=== PATIENT | male | born 1945 | race Caucasian/White ===

== ENCOUNTER 2023-06-09 07:00 | Day surgery (SDC) | payer MEDICARE, OTHER, SELFPAY ==
[2023-06-02 14:00] VITALS: BMI 29.8
--- NOTE | 2023-06-06 07:53 | MHC.SHP ---
Pre-Procedural Eval Section A Date of Service: 06/06/23 The patient is an INPATIENT: No Changes since office visit: No Cold of Flu in the past 2 weeks, No New Medical Problems, No Changes in Medication and No Patient answered all questions The History & Physical has been completed within 30 days and I have reviewed it.: Yes Section B Chief Complaint: Age-related nuclear cataract, right eye Allergies: Allergies Allergy/AdvReac Type Severity Reaction Status Date / Time Iodinated Contrast Media Allergy Severe Anaphylaxis Verified 06/02/23 13:50 [IV Contrast Dye] hydrocodone Allergy Intermediate Nausea and Verified 06/02/23 13:41 Vomiting halibut oil Allergy Severe Anaphylaxis Uncoded 06/02/23 13:41 Plan Diagnosis/Plan: Unchanged I have reviewed the history and physical and performed a pertinent physical examination on my patient. No changes have occurred unless specified. Time Spent With Patient Time: Total time managing care of this patient today ____ minutes.
[2023-06-09 07:54] VITALS: BP 160/98; PULSE 67; RESP 18; TEMP 36.3; O2SAT 97
[2023-06-09] MEDS: Tropicamide 1 % Ophth Sol 3 ML BTL 1 DROP EYE-RIGHT ×3 (07:57→07:58)
[2023-06-09] MEDS: Tetracaine HCl/PF 0.5% Oph Sol 4 ML DROPS 1 DROP EYE-RIGHT (07:57)
[2023-06-09] MEDS: Ketorolac Tromethamine 0.5% Op 5 ML DROPS 1 DROP EYE-RIGHT ×3 (07:57→07:58)
[2023-06-09] MEDS: Phenylephrine HCL 2.5% Oph SoL 2 ML BOTTLE 1 DROP EYE-RIGHT ×3 (07:57→07:59)
[2023-06-09] MEDS: Cyclopentolate 1 % Ophth Sol 2 ML DRPBTL 1 DROP EYE-RIGHT ×3 (07:57→07:58)
[2023-06-09] MEDS: Lactated Ringers 500 ML 50 ML IVCONT (07:57)
--- NOTE | 2023-06-09 08:22 | HO.ANESPROP2 ---
[facility] Past Medical History Medical History Basal cell carcinoma of skin Bleeding ulcer SVT (supraventricular tachycardia) Sleep apnea Nephrolithiasis HTN (hypertension) IBS (irritable bowel syndrome) Diverticulosis Depression Compression fracture of lumbar vertebra Gastroenteritis Surgical History Surgical History History of partial gastrectomy Hx of splenectomy History of lumbar spinal fusion H/O colonoscopy Hx of lithotripsy History of Problems with Anesthesia: No Social History Social History Are you a primary hospice patient care secretary to a significant other at home: No Do you presently have visiting nurse or other home services: No Patient Tobacco Use Status: Never used Tobacco Use of substances other than those prescribed or required for medical reasons: No Have you been hit, kicked, punched, or otherwise hurt by someone within the past year? If so, by whom?: No Are you DNR?: No Advance Directives Information Provided: Yes (as above noted) Advance Directives on File: No Recently lost weight without trying: No Eating poorly because of decreased appetite: No Nutrition Risks: Surgical patient >75years Poor oral hygiene: No Meds Allergies Allergy/AdvReac Type Severity Reaction Status Date / Time Iodinated Contrast Media Allergy Severe Anaphylaxis Verified 06/02/23 13:50 [IV Contrast Dye] hydrocodone Allergy Intermediate Nausea and Verified 06/02/23 13:41 Vomiting halibut oil Allergy Severe Anaphylaxis Uncoded 06/02/23 13:41 Active Medications: Current Medications Lactated Ringer's (Lr) 500 mls @ 50 mls/hr IVCONT .Q10H SAURAV Last Admin: 06/09/23 07:57 Dose: 50 mls/hr Povidone Iodine (Povidone Iodine 5 % Ophth Soln 30 Ml Bottle) 1 appl EYE-RIGHT PREOP PRN PRN Reason: Pre-Op Surgical Implant Prophy Home Medications Medication Instructions Recorded Confirmed Last Taken Type allopurinol 100 mg tablet 200 mg PO DAILY 06/02/23 06/02/23 Unknown History bupropion HCl 100 mg tablet,12 hr 100 mg PO DAILY 06/02/23 06/02/23 Unknown History sustained-release cholecalciferol (vitamin D3) 50 100 mcg PO DAILY 06/02/23 06/02/23 Unknown History mcg (2,000 unit) tablet (Vitamin D3) lactobacillus comb no.10 20 20,000 mmu cells PO DAILY 06/02/23 06/02/23 Unknown History billion cell capsule (Probiotic) metoprolol succinate 50 mg 50 mg PO DAILY 06/02/23 06/02/23 06/09/23 History tablet,extended release 24 hr potassium citrate 10 mEq (1,080 10 meq PO QID 06/02/23 06/02/23 Unknown History mg) tablet,extended release Exam Exam Date and Time: June 09, 202322 Height,Weight and Vital Signs: Height 5 ft 7 in Weight 86.183 kg Last Vital Signs Temp 97.4 F 06/09/23 07:54 Pulse 67 06/09/23 07:54 Resp 18 06/09/23 07:54 BP 160/98 H 06/09/23 07:54 Pulse Ox 97 06/09/23 07:54 O2 Del Method Room Air 06/09/23 07:54 Airway Mallampati Class: III TM Dist: >3cm Neck ROM: Full Loose/Missing/Broken Teeth: No Heart: RRR Lungs: CTA Assessment and Plan Assessment Anesthesia Assessment: Anesthesia Plan Discussed and Chart Reviewed Final Anesthetic Review History of Problems with Anesthesia: No NPO: Yes ASA Class: II Final Preanesthetic Review: Meds/Allgs Chart Reviewed, Consent Obtained/Reviewed and Anes Risks/Benef Reviewed Patient Risk: Low Procedure Risk: Low Anesthetic Plan Anesthetic Plan: MAC: Disposition: Standard PACU
--- NOTE | 2023-06-09 09:07 | HO.PNOPHT ---
Ophthalmology Procedure Procedure Date of Service: 06/09/23 Ophthalmology Viscoelastic: Healon Duet Dual Pack Pro Ophthalmology Lenses: TECNIS [id number] (21.5) Procedure Notes: PREOPERATIVE DIAGNOSIS: Decreased visual acuity right eye secondary to cataract POSTOPERATIVE DIAGNOSIS: Same PROCEDURE: Right cataract extraction with intraocular lens insertion SURGEON: Cliff Kim M.D. ANESTHESIA: Topical/MAC ESTIMATED BLOOD LOSS: None COMPLICATIONS: None After obtaining informed consent, the patient was brought to the operating room suite and placed in the supine position. After adequate sedation per anesthesia, topical drops of Tetracaine were given to the right eye. The eye was then prepped and draped in the usual sterile fashion. The operating room microscope was then positioned over the operative eye and a lid speculum placed. A paracentesis was created. Viscoelastic was then instilled into the anterior chamber. A three plane incision was then created temporally, utilizing a 2.85 mm keratome. Capsulotomy forceps were then utilized to create a circular tear capsulotomy. Hydrodissection and hydrodelineation were carried out until adequate mobilization of the nucleus occurred. Phacoemulsification was then utilized to remove the dense central nucleus followed by removal of the cortical material utilizing the automated aspiration irrigation unit. Viscoelastic was instilled into the posterior capsular bag followed by placement of a posterior chamber intraocular lens without difficulty. The residual Viscoelastic was then removed utilizing the automated IA machine. The wound was checked and found to be watertight. The patient tolerated the procedure well and the lid speculum was removed. Intracameral injection of Vigamox 0.1 mL followed by a subtenon injection of Kenalog-40 0.2 mL were administered. The patient will be seen in the a.m.
[2023-06-09 09:30] VITALS: BP 117/79; PULSE 66; RESP 20; TEMP 36.6; O2SAT 94
== END 2023-06-09 09:40 | disposition home or self-care (01) ==
PROVIDERS: PCP Internal Medicine; Visit Provider Ophthalmology
PROC: (CPT 66985; principal; 2023-06-09 09:20)
DX: H25.11 Age-related nuclear cataract, right eye (principal); H52.4 Presbyopia; H18.413 Arcus senilis, bilateral; H11.153 Pinguecula, bilateral; H43.393 Other vitreous opacities, bilateral; I10 Essential (primary) hypertension; Z90.3 Acquired absence of stomach [part of]; Z87.19 Personal history of other diseases of the digestive system; Z87.442 Personal history of urinary calculi; Z85.828 Personal history of other malignant neoplasm of skin; Z79.899 Other long term (current) drug therapy; Z91.041 Radiographic dye allergy status
CPT/HCPCS: 66984; J2250; J3010; J3301; V2632

== ENCOUNTER 2023-06-23 06:14 | Day surgery (SDC) | payer MEDICARE, OTHER, SELFPAY ==
[2023-06-02 14:02] VITALS: BMI 29.8
--- NOTE | 2023-06-17 14:13 | HO.ANESPROP2 ---
Documented by User: Gaye Rosa NP 06/17/23 14:13 HPI - Anesthesia Eval Consult details Narrative: 77yo M for Left Cataract Extraction IOL Insertion Medically optimized Right eye 06/09/2023: Fent 50, Midaz 2 PMFSH Past Medical History Medical History Basal cell carcinoma of skin Bleeding ulcer SVT (supraventricular tachycardia) Sleep apnea Nephrolithiasis HTN (hypertension) IBS (irritable bowel syndrome) Diverticulosis Depression Compression fracture of lumbar vertebra Gastroenteritis Surgical History Surgical History History of partial gastrectomy Hx of splenectomy History of lumbar spinal fusion H/O colonoscopy Hx of lithotripsy History of Problems with Anesthesia: No Social History Are you a primary respiratory care practitioner to a significant other at home: No Do you presently have visiting nurse or other home services: No Patient Tobacco Use Status: Never used Tobacco Use of substances other than those prescribed or required for medical reasons: No Have you been hit, kicked, punched, or otherwise hurt by someone within the past year? If so, by whom?: No Are you DNR?: No Advance Directives Information Provided: Yes (as above noted) Advance Directives on File: No Recently lost weight without trying: No Eating poorly because of decreased appetite: No Nutrition Risks: Surgical patient >75years Poor oral hygiene: No Meds Allergies Allergy/AdvReac Type Severity Reaction Status Date / Time Iodinated Contrast Media Allergy Severe Anaphylaxis Verified 06/23/23 07:05 [IV Contrast Dye] hydrocodone Allergy Intermediate Nausea and Verified 06/23/23 07:05 Vomiting halibut oil Allergy Severe Anaphylaxis Uncoded 06/23/23 07:05 Home Medications Medication Instructions Recorded Confirmed Last Taken Type allopurinol 100 mg tablet 200 mg PO DAILY 06/02/23 06/23/23 06/23/23 History bupropion HCl 100 mg tablet,12 hr 100 mg PO DAILY 06/02/23 06/02/23 Unknown History sustained-release cholecalciferol (vitamin D3) 50 100 mcg PO DAILY 06/02/23 06/02/23 Unknown History mcg (2,000 unit) tablet (Vitamin D3) lactobacillus comb no.10 20 20,000 mmu cells PO DAILY 06/02/23 06/02/23 Unknown History billion cell capsule (Probiotic) metoprolol succinate 50 mg 50 mg PO DAILY 06/02/23 06/23/23 06/23/23 History tablet,extended release 24 hr potassium citrate 10 mEq (1,080 10 meq PO QID 06/02/23 06/02/23 Unknown History mg) tablet,extended release Exam Height,Weight and Vital Signs: Height 5 ft 7 in Weight 86.183 kg Assessment and Plan Assessment Anesthesia Assessment: Chart Reviewed Final Anesthetic Review History of Problems with Anesthesia: No Documented by User: Zoe Hoffman MD 06/23/23 07:47 PMFSH Past Medical History Medical History Basal cell carcinoma of skin Bleeding ulcer SVT (supraventricular tachycardia) Sleep apnea Nephrolithiasis HTN (hypertension) IBS (irritable bowel syndrome) Diverticulosis Depression Compression fracture of lumbar vertebra Gastroenteritis Surgical History Surgical History History of partial gastrectomy Hx of splenectomy History of lumbar spinal fusion H/O colonoscopy Hx of lithotripsy Social History Are you a primary respiratory care practitioner to a significant other at home: No Do you presently have visiting nurse or other home services: No Patient Tobacco Use Status: Never used Tobacco Use of substances other than those prescribed or required for medical reasons: No Have you been hit, kicked, punched, or otherwise hurt by someone within the past year? If so, by whom?: No Are you DNR?: No Advance Directives Information Provided: Yes (as above noted) Advance Directives on File: No Recently lost weight without trying: No Eating poorly because of decreased appetite: No Nutrition Risks: Surgical patient >75years Poor oral hygiene: No Meds Allergies Allergy/AdvReac Type Severity Reaction Status Date / Time Iodinated Contrast Media Allergy Severe Anaphylaxis Verified 06/23/23 07:05 [IV Contrast Dye] hydrocodone Allergy Intermediate Nausea and Verified 06/23/23 07:05 Vomiting halibut oil Allergy Severe Anaphylaxis Uncoded 06/23/23 07:05 Home Medications Medication Instructions Recorded Confirmed Last Taken Type allopurinol 100 mg tablet 200 mg PO DAILY 06/02/23 06/23/23 06/23/23 History bupropion HCl 100 mg tablet,12 hr 100 mg PO DAILY 06/02/23 06/02/23 Unknown History sustained-release cholecalciferol (vitamin D3) 50 100 mcg PO DAILY 06/02/23 06/02/23 Unknown History mcg (2,000 unit) tablet (Vitamin D3) lactobacillus comb no.10 20 20,000 mmu cells PO DAILY 06/02/23 06/02/23 Unknown History billion cell capsule (Probiotic) metoprolol succinate 50 mg 50 mg PO DAILY 06/02/23 06/23/23 06/23/23 History tablet,extended release 24 hr potassium citrate 10 mEq (1,080 10 meq PO QID 06/02/23 06/02/23 Unknown History mg) tablet,extended release Exam Airway Mallampati Class: III TM Dist: >3cm Neck ROM: Full Loose/Missing/Broken Teeth: No Heart: RRR Lungs: CTA Assessment and Plan Assessment Anesthesia Assessment: Anesthesia Plan Discussed Final Anesthetic Review NPO: Yes ASA Class: III Final Preanesthetic Review: Meds/Allgs Chart Reviewed, Consent Obtained/Reviewed and Anes Risks/Benef Reviewed Patient Risk: Intermediate Procedure Risk: Low Anesthetic Plan Anesthetic Plan: MAC: Disposition: Standard PACU
[2023-06-23 07:03] VITALS: BP 153/97; PULSE 66; RESP 16; TEMP 36.5; O2SAT 93
[2023-06-23] MEDS: Lactated Ringers 500 ML 50 ML IV (07:05)
--- NOTE | 2023-06-23 08:20 | HO.PNOPHT ---
Ophthalmology Procedure Procedure Date of Service: 06/23/23 Ophthalmology Viscoelastic: [employer]al[employer] Duet Dual Pack Pro Ophthalmology Lenses: TECVELIA [id number] (22) Procedure Notes: PREOPERATIVE DIAGNOSIS: Decreased visual acuity left eye secondary to cataract POSTOPERATIVE DIAGNOSIS: Same PROCEDURE: Left cataract extraction with intraocular lens insertion SURGEON: Cliff Kim M.D. ANESTHESIA: Topical/MAC ESTIMATED BLOOD LOSS: None COMPLICATIONS: None After obtaining informed consent, the patient was brought to the operation room suite and placed in the supine position. After adequate sedation per anesthesia, topical drops of Tetracaine were given to the left eye. The eye was then prepped and draped in the usual sterile fashion. The operating room microscope was then positioned over the operative eye and a lid speculum placed. A paracentesis was created. Viscoelastic was then instilled into the anterior chamber. A three plane incision was then created temporally, utilizing a 2.85 mm keratome. Capsulotomy forceps were then utilized to create a circular tear capsulotomy. Hydrodissection and hydrodelineation were carried out until adequate mobilization of the nucleus occurred. Phacoemulsification was then utilized to remove the dense central nucleus followed by removal of the cortical material utilizing the automated aspiration irrigation unit. Viscoat elastic was instilled into the posterior capsular bag followed by placement of a posterior chamber intraocular lens without difficulty. The residual Viscoat elastic was then removed utilizing the automated IA machine. The wound was check and found to be watertight. The patient tolerated the procedure well and the lid speculum was removed. Intracameral injection of Vigamox 0.1 mL followed by a subtenon injection of Kenalog-40 0.2 mL were administered. The patient will be seen in the a.m.
[2023-06-23 08:44] VITALS: BP 114/79; PULSE 64; RESP 18; TEMP 36.9; O2SAT 96
== END 2023-06-23 08:53 | disposition home or self-care (01) ==
PROVIDERS: PCP Internal Medicine; Visit Provider Ophthalmology
PROC: (CPT 66985; principal; 2023-06-23 08:20)
DX: H25.12 Age-related nuclear cataract, left eye (principal); H52.4 Presbyopia; H18.413 Arcus senilis, bilateral; H11.153 Pinguecula, bilateral; H43.393 Other vitreous opacities, bilateral; I10 Essential (primary) hypertension; C44.311 Basal cell carcinoma of skin of nose; Z90.3 Acquired absence of stomach [part of]; Z87.11 Personal history of peptic ulcer disease; Z87.442 Personal history of urinary calculi; Z79.899 Other long term (current) drug therapy; Z91.041 Radiographic dye allergy status
CPT/HCPCS: 66984; J2250; J3010; J3301; V2632